=== PATIENT | male | born 1995 | race Caucasian/White ===

== ENCOUNTER 2017-01-01 02:34 | Inpatient (IN) | payer BC ==
[~2017-01-01] VITALS: Ht 172.7 cm; Wt 74.4 kg
[2017-01-01 02:35] VITALS: BP 125/77; PULSE 107; RESP 16; TEMP 98.7; O2SAT 98
[2017-01-01] MEDS ORDERED: ARIP1TAB7 PO (03:03)
[2017-01-01] MEDS ORDERED: DOXY1CAP74 PO (03:03)
[2017-01-01] MEDS ORDERED: PAXI30TA7 PO (03:03)
[2017-01-01] MEDS ORDERED: DULO20 PO (03:03)
[2017-01-01] MEDS ORDERED: propanalol (03:03)
--- NOTE | 2017-01-01 03:54 | PD ---
HPI Chief Complaint: Psychiatric Symptoms Time Seen by Provider: 03:17 Travel History International Travel<30 days: No Contact w/Intl Traveler<30days: No Traveled to known affect area: No History of Present Illness HPI 21-year-old white male presents to emergency department requesting psychological evaluation of depression with suicidal thoughts. The patient states that he has been recently depressed. He does not identify any particular reason why he is been more depressed lately. He states that he is attempted suicide in the past on more than one occasion. He has overdosed, and cut his wrists. He states that at night he lays down and contemplates killing himself. He is considered overdosing on his Vistaril then putting a plastic bag over his head. The patient denies any toxic ingestions. He denies any homicidal ideation. No recent illness. He states that he is compliant with his medications. Symptoms are severe. No alleviating factor. PFSH Past Medical History Narrative Medical Depression, suicide attempts Psychiatric: Yes (OCD, BORDERLINE PERSONALITY DYSORDER) Tetanus Vaccination: < 5 Years Past Surgical History Surgical History: No Previous Surgery Social History Alcohol Use: No Tobacco Use: Yes Substance Use: No Allergies-Medications (Allergen,Severity, Reaction): Coded Allergies: No Known Allergies (Unverified , 01/01/17) Reported Meds & Prescriptions Reported Meds & Active Scripts Active Reported [propanalol] Unknown Dose Doxycycline 40 Mg Cap 100 Mg PO DAILY Cymbalta DR (Duloxetine HCl) 20 Mg Capdr 20 Mg PO DAILY Abilify (Aripiprazole) 20 Mg Tab 20 Mg PO DAILY Paxil (Paroxetine HCl) 30 Mg Tab 60 Mg PO DAILY Review of Systems General / Constitutional: No: Fever Eyes: No: Visual changes HENT: No: Headaches Cardiovascular: No: Chest Pain or Discomfort Respiratory: No: Shortness of Breath Gastrointestinal: No: Abdominal Pain Genitourinary: No: Dysuria Musculoskeletal: No: Pain Skin: No Rash Neurologic: No: Weakness Psychiatric: Positive: Depression, Suicidal Ideations, Mood Disorder, No: Anxiety, Disorder of Thought, Substance Abuse, Homicidal Ideation Endocrine: No: Polydipsia Hematologic/Lymphatic: No: Easy Bruising Physical Exam Narrative GENERAL: Well-nourished, well-developed patient. Flat affect. SKIN: Warm and dry. Old scar in the left wrist suicide attempt. HEAD: Normocephalic and atraumatic. EYES: No scleral icterus. No injection or drainage. ENT: No nasal drainage noted. Mucous membranes pink. Airway patent. NECK: Supple, trachea midline. Moves head freely without obvious discomfort. CARDIOVASCULAR: Regular rate and rhythm without murmurs, gallops, or rubs. RESPIRATORY: Breath sounds equal bilaterally. No accessory muscle use. GASTROINTESTINAL: Abdomen soft, non-tender, nondistended. EXTREMITIES: No cyanosis or edema. BACK: Nontender without obvious deformity. No CVA tenderness. NEURO: Patient is alert and oriented. no sensorimotor deficits. Nonfocal. Normal speech. PSYCH: No delusions. No auditory or visual hallucinations. Data Data Last Documented VS Vital Signs Date Time Temp Pulse Resp B/P (MAP) Pulse Ox O2 Delivery O2 Flow Rate FiO2 01/01/17 02:35 98.7 107 16 125/77 (93) 98 Room Air Orders Orders Complete Blood Count With Diff (01/01/17 03:23) Comprehensive Metabolic Panel (01/01/17 03:23) Psych Screen (01/01/17 03:23) Drug Screen, Random Urine (01/01/17 03:23) Alcohol (Ethanol) (01/01/17 03:23) Salicylates (Aspirin) (01/01/17 03:23) Tylenol (Acetaminophen) (01/01/17 03:23) MDM Medical Decision Making Medical Screen Exam Complete: Yes Emergency Medical Condition: Yes Medical Record Reviewed: Yes Differential Diagnosis MDM: High Differential diagnoses: Schizophrenia, schizoaffective disorder, bipolar, anxiety, depression, adjustment reaction, mood disorder NOS, ODD, depressive disorder NOS, dementia, dementia with agitation, psychosis NOS, substance induced mood disorder, intermittent explosive disorder, Asperger syndrome, infection,electrolyte abnormality, malingering. Narrative Course Mental health screening discussed with the patient. Psychiatric screen ordered. The patient is been medically cleared. This is medical clearance for psychiatric admission, major depression, suicidal ideation Diagnosis Primary Impression: Medical clearance for psychiatric admission Additional Impressions: Major depression Qualified Codes: F33.2 - Major depressive disorder, recurrent severe without psychotic features Suicidal ideation Condition: Stable Seferino Nation Jan 01, 2017 03:54
[2017-01-01 04:15] LABS: AUTOMATED NEUTROPHIL # 4.8 TH/MM3 (1.8-7.7); BASOPHIL % 0.5 % (0.0-2.0); EOSINOPHIL # 0.2 TH/MM3 (0-0.4); EOSINOPHIL % 1.8 % (0.0-4.0); HEMATOCRIT 43.2 % (39.0-51.0); HEMO FLAGS DIFF FINAL; LYMPH % 33.1 % (9.0-44.0); LYMPHOCYTE # 2.9 TH/MM3 (1.0-4.8); MEAN CELL VOLUME 86.6 FL (80.0-100.0); MEAN CORPUSCULAR HGB CONC 33.5 % (32.0-36.0); MONO % 8.7 % (0.0-8.0); NEUT % 55.9 % (16.0-70.0); PLATELET COUNT 260 TH/MM3 (150-450); RED BLOOD COUNT 4.99 MIL/MM3 (4.50-5.90); RED CELL DISTRIBUTION WIDTH 14.4 % (11.6-17.2); WHITE BLOOD COUNT 8.6 TH/MM3 (4.0-11.0)
[2017-01-01 04:31] LABS: ALKALINE PHOSPHATASE 77 U/L (45-117); TOTAL BILIRUBIN ADULT 0.3 MG/DL (0.2-1.0)
[2017-01-01 04:37] LABS: ACETAMINOPHEN LESS THAN 2.0 MCG/ML (10.0-30.0); ALCOHOL LESS THAN 3 MG/DL (0-5); ALT (GPT) 24 U/L (12-78); ANION GAP 6 MEQ/L (5-15); AST (GOT) 19 U/L (15-37); BLOOD UREA NITROGEN 8 MG/DL (7-18); CHLORIDE 106 MEQ/L (98-107); GLOMERULAR FILTRATION RATE 145 ML/MIN (>89); SODIUM (NA) 139 MEQ/L (136-145)
[2017-01-01 08:02] VITALS: BP 108/58; PULSE 93; RESP 17; TEMP 97.9; O2SAT 97
--- NOTE | 2017-01-01 14:52 | HHI.HP ---
Provisional Diagnosis Admission Date Geff I. Major depression, severe, without psychotic features Certification of Person's Competence To Provide Express and Informed Consent I have personally examined Fernanda Corbett , a person being served at [facility] on, Jan 01, 2017 14:43. Express and informed consent means consent voluntarily given in writing, by a competent person, after sufficient explanation and disclosure of the subject matter involved to enable the person to make a knowing and willful decision without any element of force, fraud, deceit, duress, or other form of constraint or coercion. This person is 18 years of age or older, is not now known to be incompetent to consent to treatment with a guardian advocate, and does not have a health care surrogate or proxy currently making medical treatment decisions. I have found this person to be one of the following: [X] Competent to provide express and informed consent, as defined above, for voluntary admission to this facility and is competent to provide express and informed consent for treatment. He/she has the consistent capacity to make well reasoned, willful, and knowing decisions concerning his or her medical or mental health treatment. The person fully and consistently understands the purpose of the admission for examination/placement and is fully capable of personally exercising all rights assured [place] Incompetent to provide express and informed consent to voluntary admission, and this is incompetent to provide express and informed consent to treatment. The person must be transferred to involuntary status and a petition for a guardian advocate filed with the Circuit Court. [] Refusing to provide express and informed consent to voluntary admission but is competent to provide express and informed consent for treatment. The person must be discharged or transferred to involuntary status. Form shall be completed within 24 hours of a person's arrival at the receiving facility and filed in the clinical record of each person: 1. Admitted on a voluntary basis 2. Permitted to provide express and informed consent to his/her own treatment 3. Allowed to transfer from involuntary to voluntary status 4. Prior to permitting a person to consent to his or her own treatment after having been previously found incompetent to consent to treatment. History of Present Illness Capacity: Has Capacity HPI 21-year-old male who presents voluntarily with approximate two-month history of increasing symptoms of depression. Patient is treated by Oriana Vidales in the [facility], with multiple psychotropic medicines, but his depression has gotten worse. He is experiencing nightly thoughts of suicide, including overdose on his Vistaril medication and putting a plastic bag over his head. He has attempted suicide in the past by cutting his wrists and overdosing. He does not recognize any stressor in the last 1-2 months that has caused this exacerbation of depression. He does not use alcohol or drugs. Patient's current symptoms include depressed mood, anhedonia, feelings of hopelessness and helplessness, suicidal ideation with plan, sleep disturbance, social withdrawal, diminished energy, diminished concentration, poor self- esteem and anxiety. He is living with his parents and is unemployed. Review of Systems Psychiatric: COMPLAINS OF: Anxiety, Depression Except as stated in HPI: all other systems reviewed are Neg Past Psych History Psychological trauma history Denied Violence risk - others (6 mos) Minimal Violence risk - self (6 mos) High Substance Abuse History Drugs/Alcohol past 12 months Denied Past Family Social History Coded Allergies: No Known Allergies (Unverified , 01/01/17) Reported Medications [propanalol] No Conflict Check, for Anxiety 01/01/17 Doxycycline (Doxycycline) 40 Mg Cap, 100 MG PO DAILY for Infection, CAP 0 Refills 01/01/[address] (Cymbalta DR) 20 Mg Capdr, 20 MG PO DAILY, #30 CAP 0 Refills 01/01/17 Aripiprazole (Abilify) 20 Mg Tab, 20 MG PO DAILY, #30 TAB 0 Refills 01/01/17 Paroxetine (Paxil) 30 Mg Tab, 60 MG PO DAILY, #30 TAB 0 Refills 01/01/17 Family Psych History Positive for mood and anxiety disorders. Social History Lives with his 72-year-old father, 50 [id number] mother and twin sister. Apparently no one works in the home and the father is retired. Both the patient and his twin sister are not in school and not employed. Patient does not have a history of drug or alcohol abuse. He does have a history of treatment in both residential settings and partial hospitalization settings. He has been treated for years, since he was a minor. His current medication regimen is of concern to this physician due to possible side effects and it is not working to treat his depression. Physical Exam GENERAL: SKIN: Warm and dry. HEAD: Normocephalic. EYES: No scleral icterus. No injection or drainage. NECK: Supple, trachea midline. No JVD or lymphadenopathy. CARDIOVASCULAR: Regular rate and rhythm without murmurs, gallops, or rubs. RESPIRATORY: Breath sounds equal bilaterally. No accessory muscle use. GASTROINTESTINAL: Abdomen soft, non-tender, nondistended. MUSCULOSKELETAL: No cyanosis, or edema. BACK: Nontender without obvious deformity. No CVA tenderness. Vital Signs Vital Signs Date Time Temp Pulse Resp B/P (MAP) Pulse Ox O2 Delivery O2 Flow Rate FiO2 01/01/17 08:02 97.9 93 17 108/58 (75) 97 Room Air Lab Results Test 01/01/17 04:02 White Blood Count 8.6 TH/MM3 Red Blood Count 4.99 MIL/MM3 Hemoglobin 14.5 GM/DL Hematocrit 43.2 % Mean Corpuscular Volume 86.6 FL Mean Corpuscular Hemoglobin 29.0 PG Mean Corpuscular Hemoglobin Concent 33.5 % Red Cell Distribution Width 14.4 % Platelet Count 260 TH/MM3 Mean Platelet Volume 6.8 FL Neutrophils (%) (Auto) 55.9 % Lymphocytes (%) (Auto) 33.1 % Monocytes (%) (Auto) 8.7 % Eosinophils (%) (Auto) 1.8 % Basophils (%) (Auto) 0.5 % Neutrophils # (Auto) 4.8 TH/MM3 Lymphocytes # (Auto) 2.9 TH/MM3 Monocytes # (Auto) 0.8 TH/MM3 Eosinophils # (Auto) 0.2 TH/MM3 Basophils # (Auto) 0.0 TH/MM3 CBC Comment DIFF FINAL Differential Comment Blood Urea Nitrogen 8 MG/DL Creatinine 0.69 MG/DL Random Glucose 79 MG/DL Total Protein 6.8 GM/DL Albumin 3.6 GM/DL Calcium Level 8.5 MG/DL Alkaline Phosphatase 77 U/L Aspartate Amino Transf (AST/SGOT) 19 U/L Alanine Aminotransferase (ALT/SGPT) 24 U/L Total Bilirubin 0.3 MG/DL Sodium Level 139 MEQ/L Potassium Level 4.0 MEQ/L Chloride Level 106 MEQ/L Carbon Dioxide Level 27.0 MEQ/L Anion Gap 6 MEQ/L Estimat Glomerular Filtration Rate 145 ML/MIN Salicylates Level 2.7 MG/DL Urine Opiates Screen NEG Acetaminophen Level LESS THAN 2.0 MCG/ML Urine Barbiturates Screen NEG Urine Amphetamines Screen NEG Urine Benzodiazepines Screen NEG Urine Cocaine Screen NEG Urine Cannabinoids Screen NEG Ethyl Alcohol Level LESS THAN 3 MG/DL Mental Status Examination Appearance: Appropriate Consciousness: Alert Orientation: x4 Motor Activity: Normal gait Speech: Unremarkable Language: Adequate Fund of Knowledge: Adequate Attention and Concentration: Adequate Memory: Unremarkable Mood: Sad Affect: Sad Thought Process & Associations: Intact Thought Content: Appropriate Hallucination Type: None Delusion Type: None Suicidal Ideation: Yes Suicidal Plan: Yes Suicidal Intention: Yes Homicidal Ideation: No Homicidal Plan: No Homicidal Intention: No Insight: Fair Judgment: Impulsive Assessment & Plan Problem List: (1) Severe major depression without psychotic features ICD Codes: F32.2 - Major depressive disorder, single episode, severe without psychotic features Status: Acute Assessment & Plan Estimated LOS: days. 21-year-old male presents voluntarily with increasing symptoms of depression over the last 2 months, with nightly thoughts of killing himself, including by overdose and suffocation with a plastic bag over his head. Patient is unable to contract for safety at this time and states he is tired of contemplating suicide every night and resisting his impulses. He does not feel his medications are working adequately and he is unable to contract for safety. He has attempted suicide in the past by overdose and cutting his wrists. This physician feels he is at great risk for another suicide attempt. This physician has ordered a CBC and comprehensive metabolic panel to determine if any infectious process or metabolic process is causing or contributing to his depression. Additionally, this physician has ordered a thyroid-stimulating hormone level, vitamin B-12 and vitamin D levels, to determine if deficiencies in these areas are causing or contributing to his depression. This physician has also ordered an EKG, to determine his cardiac conduction status. Patient is on multiple psychotropic medications, some of which inhibit the metabolism of others. This may be putting the patient at risk for cardiac conduction abnormalities. Finally, this physician spoke with the patient's nurse regarding his recent behavior. Case management will be involved to obtain further history from family members and assist with disposition planning. Tano Patel MD Jan 01, 2017 14:52
[2017-01-01] MEDS ORDERED: ACETAMINOPHEN 325 MG TAB PO PRN (15:00)
[2017-01-01] MEDS ORDERED: LORazepam 1 MG TAB PO PRN (15:00)
[2017-01-01] MEDS ORDERED: ALUMINUM/MAGNESIUM/SIMETH 30 ML CUP PO PRN (15:00)
[2017-01-01] MEDS ORDERED: LORazepam 2 MG/ML VIAL IM PRN (15:00)
[2017-01-01] MEDS ORDERED: DOXY100C PO (15:27)
[2017-01-01] MEDS ORDERED: PILL SPLITTER OTHER PRN (15:30)
[2017-01-01 18:12] VITALS: BP 118/56; PULSE 83; RESP 18; TEMP 98.9; O2SAT 97
[2017-01-01] MEDS: PARoxetine HCL 20 MG TAB PO SCH (18:31)
[2017-01-01] MEDS: DULoxetine HCl DR 20 MG CAP PO SCH (18:31)
[2017-01-01] MEDS: hydrOXYzine HCL 50 MG TAB PO PRN (20:43)
[2017-01-02 05:56] VITALS: BP 101/58; PULSE 77; RESP 17; TEMP 97.4; O2SAT 98
[2017-01-02] MEDS: DULoxetine HCl DR 20 MG CAP PO SCH (08:11)
[2017-01-02] MEDS: PARoxetine HCL 20 MG TAB PO SCH (08:12)
[2017-01-02] MEDS: DOXYCYCLINE HYCLATE 100 MG TAB PO SCH (08:35)
[2017-01-02] MEDS ORDERED: INFLUENZA VIRUS VACCINE (QUADRIVALENT) 0.5 ML SYR IM ONE (10:00)
[2017-01-02 11:33] LABS: AUTOMATED NEUTROPHIL # 4.4 TH/MM3 (1.8-7.7); BASOPHIL % 0.5 % (0.0-2.0); EOSINOPHIL # 0.2 TH/MM3 (0-0.4); EOSINOPHIL % 2.2 % (0.0-4.0); HEMATOCRIT 44.2 % (39.0-51.0); HEMO FLAGS DIFF FINAL; LYMPH % 29.7 % (9.0-44.0); LYMPHOCYTE # 2.2 TH/MM3 (1.0-4.8); MEAN CELL VOLUME 86.7 FL (80.0-100.0); MEAN CORPUSCULAR HEMOGLOBIN 28.4 PG (27.0-34.0); MEAN CORPUSCULAR HGB CONC 32.8 % (32.0-36.0); NEUT % 59.6 % (16.0-70.0); PLATELET COUNT 246 TH/MM3 (150-450); RED CELL DISTRIBUTION WIDTH 14.3 % (11.6-17.2); WHITE BLOOD COUNT 7.4 TH/MM3 (4.0-11.0)
[2017-01-02 11:51] LABS: ALT (GPT) 22 U/L (12-78); ANION GAP 6 MEQ/L (5-15); AST (GOT) 15 U/L (15-37); BICARBONATE 28.2 MEQ/L (21.0-32.0); BLOOD UREA NITROGEN 9 MG/DL (7-18); CHLORIDE 105 MEQ/L (98-107); GLOMERULAR FILTRATION RATE 170 ML/MIN (>89); POTASSIUM 4.2 MEQ/L (3.5-5.1); SODIUM (NA) 139 MEQ/L (136-145)
[2017-01-02] MEDS ORDERED: PROP10TA6 PO (12:04)
[2017-01-02 12:18] LABS: ALKALINE PHOSPHATASE 69 U/L (45-117); HDL CHOLESTEROL 26.9 MG/DL (40.0-60.0); LDL CHOLESTEROL 95 MG/DL (0-99); TOTAL BILIRUBIN ADULT 0.3 MG/DL (0.2-1.0)
--- NOTE | 2017-01-02 12:18 | HHI.PYPN ---
Subjective Remarks Patient seen and examined. Chart reviewed. Case discussed in treatment team. On my examination today, the patient reports suicidal ideation since age 11. He notes that these ideations improve with medications but never remit. He says that prior to admission "I felt like either I was going to kill myself or come in [to the hospital]." He says that he was planning to overdose on medications and asphyxiate himself and had gotten as far as selecting the appropriate medications and assembling the bag but stopped himself and sought psychiatric help instead. He denies any urge to hurt himself on the inpatient unit but admits to ongoing suicidal ideation. He contracts for safety and agrees to let nursing staff know if he is feeling like hurting himself on the unit. He endorses low mood among other depressive symptoms. Most troubling symptom cluster is low energy and lack of motivation. Patient also reports obsessional thinking with perceived sexual transgressions. No current or prior hypomanic or manic symptoms although the patient's mother does have a history of bipolar illness. No psychotic symptoms. Patient does have some social phobia and feels that others are judging him. Patient reports that he has been on his current regimen of Abilify, Paxil and Cymbalta for the last month, when the Cymbalta was added during his most recent hospitalization. He is tolerating this regimen well but does not feel like the addition of Cymbalta was terribly helpful. He says Prozac and Luvox cause migraines in the past. He has been on Wellbutrin but never in combination with current agents. He has also been on Zoloft, clomipramine, Risperdal and Latuda. Patient is transgender and receives testosterone injections every week on , and I have asked him to have his home testosterone preparation brought in so that it may be ordered for him. Denies side effects from medications. No physical complaints. Chief Complaint: suicidal ideation Review of Systems Except as stated in HPI: all other systems reviewed are Neg Mental Status Examination Appearance: Appropriate Consciousness: Alert Orientation: x4 Motor Activity: Other (no motor abnormalities noted) Speech: Unremarkable Language: Adequate Fund of Knowledge: Adequate Attention and Concentration: Adequate Memory: Unremarkable (grossly intact on clinical exam) Mood: Other (depressed) Affect: Blunt Thought Process & Associations: Logical, Linear Thought Content: Appropriate Hallucination Type: None Delusion Type: None Suicidal Ideation: Yes Suicidal Plan: No Suicidal Intention: No Homicidal Ideation: No Homicidal Plan: No Homicidal Intention: No Insight: Fair Judgment: Impulsive Results Labs Test 01/02/17 10:52 White Blood Count 7.4 TH/MM3 Red Blood Count 5.10 MIL/MM3 Hemoglobin 14.5 GM/DL Hematocrit 44.2 % Mean Corpuscular Volume 86.7 FL Mean Corpuscular Hemoglobin 28.4 PG Mean Corpuscular Hemoglobin Concent 32.8 % Red Cell Distribution Width 14.3 % Platelet Count 246 TH/MM3 Mean Platelet Volume 6.9 FL Neutrophils (%) (Auto) 59.6 % Lymphocytes (%) (Auto) 29.7 % Monocytes (%) (Auto) 8.0 % Eosinophils (%) (Auto) 2.2 % Basophils (%) (Auto) 0.5 % Neutrophils # (Auto) 4.4 TH/MM3 Lymphocytes # (Auto) 2.2 TH/MM3 Monocytes # (Auto) 0.6 TH/MM3 Eosinophils # (Auto) 0.2 TH/MM3 Basophils # (Auto) 0.0 TH/MM3 CBC Comment DIFF FINAL Differential Comment Blood Urea Nitrogen 9 MG/DL Creatinine 0.60 MG/DL Random Glucose 85 MG/DL Albumin 3.5 GM/DL Calcium Level 8.8 MG/DL Aspartate Amino Transf (AST/SGOT) 15 U/L Alanine Aminotransferase (ALT/SGPT) 22 U/L Sodium Level 139 MEQ/L Potassium Level 4.2 MEQ/L Chloride Level 105 MEQ/L Carbon Dioxide Level 28.2 MEQ/L Anion Gap 6 MEQ/L Estimat Glomerular Filtration Rate 170 ML/MIN Cholesterol Level 165 MG/DL Labs reviewed. CBC unremarkable. CMP unremarkable. Vitamin D level low. TSH within normal limits. Urine toxicology negative and alcohol level undetectable. Vitals/IOs Vital Signs Date Time Temp Pulse Resp B/P (MAP) Pulse Ox O2 Delivery O2 Flow Rate FiO2 01/02/17 05:56 97.4 77 17 101/58 (72) 98 01/01/17 08:02 Room Air Assessment & Plan Problem List: (1) Major depression ICD Codes: F32.9 - Major depressive disorder, single episode, unspecified Status: Acute Assessment & Plan Extensive discussion with patient regarding pharmacotherapeutic options for current psychiatric symptoms. We discussed the risks and benefits of several approaches including but not limited to adjustment of primary antidepressant, augmentation with Wellbutrin, Cytomel, lithium, Lamictal among other strategies. Since the Cymbalta has not been terribly helpful for him, and since he is already on a robust dose of a serotonergic antidepressant in the Paxil, discontinue Cymbalta. Patient would like to try Wellbutrin in combination with current Abilify/Paxil regimen. Initiate Wellbutrin SR 100 mg twice daily with plans to titrate to effect. Nurse to clarify home testosterone formulation and dose, and I will then order this. Vitamin D supplement. Patient is requesting a vegetarian diet, and I have ordered this. Continue to monitor on the inpatient unit. Encourage participation in groups and unit activities. Continue other medications and care as ordered. Justification for Cont. Inpt. Monitoring for impairments in safety. Medication changes. High risk for decompensation in less restrictive environment. Discharge Planning Pending psychiatric stabilization. ELOS: 7-10 inpatient days. Case discussed with counselor. Possible return to residential treatment as a bridge between inpatient unit and outpatient psychiatric care. Request HC Surrog/Guard Advoc?: No Problem Qualifiers (1) Major depression: Qualified Codes: F33.2 - Major depressive disorder, recurrent severe without psychotic features Jagdeep Montoya MD Jan 02, 2017 12:17
[2017-01-02] MEDS: buPROPion HCL 100 MG SUSTAINED RELEASE TAB PO SCH (14:22)
[2017-01-02] MEDS: ERGOCALCIFEROL (VIT D2) 50,000 UNIT CAP PO SCH (15:02)
[2017-01-02 15:21] LABS: HEMOGLOBIN A1a 1.1 %; HEMOGLOBIN A1b 1.6 %; HEMOGLOBIN Ao 86.9 %; HEMOGLOBIN LA1C 1.7 %; HEMOGLOBIN P3 3.2 %
[2017-01-02 18:13] VITALS: BP 106/58; PULSE 91; RESP 17; TEMP 98; O2SAT 98
[2017-01-03 06:13] VITALS: BP 89/58; PULSE 78; RESP 18; TEMP 97.5; O2SAT 98
--- NOTE | 2017-01-03 07:43 | EKG ---
Date Performed: 01/01/2017 Time Performed: 16:05:33 PTAGE: 21 years EKG: Sinus rhythm NORMAL ECG NO PREVIOUS TRACING DOCTOR: Tano Brewster Interpretating Date/Time 01/03/2017 07:41:50
[2017-01-03] MEDS: PARoxetine HCL 20 MG TAB PO SCH (08:08)
[2017-01-03] MEDS: DOXYCYCLINE HYCLATE 100 MG TAB PO SCH (08:11)
[2017-01-03] MEDS: buPROPion HCL 100 MG SUSTAINED RELEASE TAB PO SCH ×2 (08:15→13:42)
--- NOTE | 2017-01-03 09:48 | HHI.PYPN ---
Subjective Remarks Patient seen and examined with nurse. Chart reviewed. Case discussed with nursing staff. On my examination today, the patient complains of ongoing low mood. He endorses ongoing suicidal ideation worse than chronic baseline suicidal ideation. He says that his urge to self injure is 4/10, and the lowest it has ever gotten in the past is 2-3/10. Sleep is fair. Obsessional thinking somewhat decreased. Denies any side effects from medications. No physical complaints. Reports that he recently had started seeing an individual DBT therapist by the name of Hugo Tayler in [place]. Interested in trying to resume residential treatment. We have confirmed testosterone dose, and I have ordered this. Chief Complaint: suicidal ideation Review of Systems Except as stated in HPI: all other systems reviewed are Neg Mental Status Examination Appearance: Appropriate Consciousness: Alert Orientation: x4 Motor Activity: Other (no motor abnormalities noted) Speech: Unremarkable Attention and Concentration: Adequate Mood: Other (depressed perhaps a little less so today) Affect: Other (a little more full and reactive) Thought Process & Associations: Logical, Linear Thought Content: Appropriate Hallucination Type: None Delusion Type: None Suicidal Ideation: Yes Suicidal Plan: No Suicidal Intention: No Homicidal Ideation: No Homicidal Plan: No Homicidal Intention: No Insight: Fair Judgment: Impulsive Results Labs Test 01/02/17 10:52 White Blood Count 7.4 TH/MM3 Red Blood Count 5.10 MIL/MM3 Hemoglobin 14.5 GM/DL Hematocrit 44.2 % Mean Corpuscular Volume 86.7 FL Mean Corpuscular Hemoglobin 28.4 PG Mean Corpuscular Hemoglobin Concent 32.8 % Red Cell Distribution Width 14.3 % Platelet Count 246 TH/MM3 Mean Platelet Volume 6.9 FL Neutrophils (%) (Auto) 59.6 % Lymphocytes (%) (Auto) 29.7 % Monocytes (%) (Auto) 8.0 % Eosinophils (%) (Auto) 2.2 % Basophils (%) (Auto) 0.5 % Neutrophils # (Auto) 4.4 TH/MM3 Lymphocytes # (Auto) 2.2 TH/MM3 Monocytes # (Auto) 0.6 TH/MM3 Eosinophils # (Auto) 0.2 TH/MM3 Basophils # (Auto) 0.0 TH/MM3 CBC Comment DIFF FINAL Differential Comment Blood Urea Nitrogen 9 MG/DL Creatinine 0.60 MG/DL Random Glucose 85 MG/DL Total Protein 6.3 GM/DL Albumin 3.5 GM/DL Calcium Level 8.8 MG/DL Alkaline Phosphatase 69 U/L Aspartate Amino Transf (AST/SGOT) 15 U/L Alanine Aminotransferase (ALT/SGPT) 22 U/L Total Bilirubin 0.3 MG/DL Sodium Level 139 MEQ/L Potassium Level 4.2 MEQ/L Chloride Level 105 MEQ/L Carbon Dioxide Level 28.2 MEQ/L Anion Gap 6 MEQ/L Estimat Glomerular Filtration Rate 170 ML/MIN Hemoglobin A1c 5.0 % Triglycerides Level 215 MG/DL Cholesterol Level 165 MG/DL LDL Cholesterol 95 MG/DL HDL Cholesterol 26.9 MG/DL Cholesterol/HDL Ratio 6.13 RATIO Vitamin B12 Level 490 PG/ML 25-Hydroxy Vitamin D Total 11.9 ng/ML Thyroid Stimulating Hormone 3rd Gen 1.130 uIU/ML Labs reviewed. EKG normal sinus rhythm with a QTC within normal limits. Vitals/IOs Vital Signs Date Time Temp Pulse Resp B/P (MAP) Pulse Ox O2 Delivery O2 Flow Rate FiO2 01/03/17 06:13 97.5 78 18 89/58 (68) 98 01/01/17 08:02 Room Air Assessment & Plan Problem List: (1) Major depression ICD Codes: F32.9 - Major depressive disorder, single episode, unspecified Status: Acute Assessment & Plan Continue Wellbutrin as ordered for now with plans to titrate to target ongoing low mood. Continue Abilify and Paxil as ordered. I have ordered patient's testosterone injection for tomorrow. Continue to monitor on the inpatient unit. Continue other medications and care as ordered. Justification for Cont. Inpt. Monitoring for impairments in safety. Medication changes planned. High risk for decompensation in less restrictive environment. Discharge Planning Possible residential treatment. I have left a voicemail for the counselor to discuss options with the patient in this regard. If residential treatment can be arranged, anticipate discharge Sunday or perhaps shortly after the weekend. Request HC Surrog/Guard Advoc?: No Problem Qualifiers (1) Major depression: Qualified Codes: F33.2 - Major depressive disorder, recurrent severe without psychotic features Jagdeep Montoya MD Jan 03, 2017 09:48
[2017-01-03 17:43] VITALS: BP 126/77; PULSE 89; RESP 18; TEMP 98.9; O2SAT 100
[2017-01-04 06:16] VITALS: BP 98/55; PULSE 82; RESP 16; TEMP 97.8; O2SAT 97
[2017-01-04] MEDS: DOXYCYCLINE HYCLATE 100 MG TAB PO SCH (08:17)
[2017-01-04] MEDS: PARoxetine HCL 20 MG TAB PO SCH (08:17)
[2017-01-04] MEDS: buPROPion HCL 100 MG SUSTAINED RELEASE TAB PO SCH (08:28)
--- NOTE | 2017-01-04 10:58 | HHI.PYPN ---
Subjective Chief Complaint: suicidal ideation Remarks Patient seen and examined. Chart reviewed. Case discussed with nursing staff. On my examination today, the patient continues to complain of low mood. Says that he was ruminating on how he feels like his life is "pointless, meaningless and empty." We discuss ways in which he has found meaning and purpose in the past, and the patient says that he has found a lot of meaning through schooling and education. He also paints and draws, but he says that he does not enjoy the process of creating these artworks but rather enjoys the finished product, and he notes that lately he has not even been enjoying this. He denies any active suicidal ideation at this time. A little irritable last night because his mother called and seemed somewhat distant or distracted but would not tell him what was wrong. I ask if he would like us to involve his mother or anyone else in his case, and he declines at this time. He says that he was on some Inderal prior to admission for the physical symptoms of anxiety and asks if he should resume this after discharge, and I cautioned him that because his blood pressures have been on the low side while he has been in the hospital, I think it would be inadvisable to restart an antihypertensive agent, such as Inderal. Denies side effects from current medications. Agreeable to titration of Wellbutrin to target low mood. Agreeable to residential treatment but would like to explore intensive outpatient treatment on an individual basis with psychotherapist as an alternative or backup plan. Review of Systems Except as stated in HPI: all other systems reviewed are Neg Mental Status Examination Appearance: Appropriate Consciousness: Alert Orientation: x4 Motor Activity: Other (no motoric abnormalities noted) Speech: Unremarkable Language: Adequate Attention and Concentration: Adequate Mood: Other (Depressed) Affect: Blunt Thought Process & Associations: Logical, Goal directed, Linear Thought Content: Appropriate Hallucination Type: None Delusion Type: None Suicidal Ideation: No Suicidal Plan: No Suicidal Intention: No Homicidal Ideation: No Homicidal Plan: No Homicidal Intention: No Insight: Fair Judgment: Impulsive Results Labs Labs reviewed. No new labs. Vitals/IOs Vital Signs Date Time Temp Pulse Resp B/P (MAP) Pulse Ox O2 Delivery O2 Flow Rate FiO2 01/04/17 06:16 97.8 82 16 98/55 (69) 97 01/01/17 08:02 Room Air Assessment & Plan Problem List: (1) Major depression ICD Codes: F32.9 - Major depressive disorder, single episode, unspecified Status: Acute Assessment & Plan Titrate Wellbutrin SR to 150 mg twice daily to target ongoing low mood symptoms. Continue Abilify and Paxil as ordered. Continue to monitor on the inpatient unit. Continue other medications and care as ordered. Justification for Cont. Inpt. Medication changes. Monitoring for impairment and safety. High risk for decompensation in less restrictive environment. Discharge Planning Residential treatment versus intensive outpatient psychotherapy. Case discussed with counselor who is working on residential treatment options. Request HC Surrog/Guard Advoc?: No Problem Qualifiers (1) Major depression: Qualified Codes: F33.2 - Major depressive disorder, recurrent severe without psychotic features Jagdeep Montoya MD Jan 04, 2017 10:58
[2017-01-04] MEDS: TESTOSTERONE CYPIONATE IN OIL 200 MG/ML VIAL IM SCH (12:02)
[2017-01-04] MEDS: buPROPion HCL 150 MG SUSTAINED RELEASE TAB PO SCH (14:51)
[2017-01-04 16:13] VITALS: BP 127/80; PULSE 88; RESP 18; TEMP 97; O2SAT 99
[2017-01-04] MEDS: hydrOXYzine HCL 50 MG TAB PO PRN (20:07)
[2017-01-04] MEDS: traZODone HCL 50 MG TAB PO PRN (21:29)
[2017-01-05 06:10] VITALS: BP 99/69; PULSE 76; RESP 16; TEMP 97.9; O2SAT 96
[2017-01-05] MEDS: DOXYCYCLINE HYCLATE 100 MG TAB PO SCH (09:24)
[2017-01-05] MEDS: PARoxetine HCL 20 MG TAB PO SCH (09:25)
[2017-01-05] MEDS: buPROPion HCL 150 MG SUSTAINED RELEASE TAB PO SCH ×2 (09:25→14:35)
--- NOTE | 2017-01-05 11:45 | HHI.PYPN ---
Subjective Chief Complaint: suicidal ideation Remarks Patient seen and examined with nurse. Chart reviewed. Case discussed with nursing staff reports the patient had a difficult visit yesterday evening and return to the unit thereafter crying but otherwise has been no behavioral problem. On my examination today, the patient reports that his mood this morning is "pretty down." He says that his mother brought up his separation from his spouse and this led to him ruminating about being alone. This morning , after a conversation with a peer, he has been ruminating about and the afterlife. He says that his suicidal intent is 5/10 today, although he continues to deny any urge to hurt himself on the inpatient unit. He does feel somewhat less lethargic, and we have discussed that this represents a period of risk for potential self-harm and it is crucial for him to report any active suicidal intent to the nurse immediately, and he agrees to do so. Denies side effects from medications. Remains agreeable to residential treatment, if this can be arranged. No physical complaints. Review of Systems Except as stated in HPI: all other systems reviewed are Neg Mental Status Examination Appearance: Appropriate Consciousness: Alert Orientation: x4 Motor Activity: Other (no motoric abnormalities noted) Speech: Unremarkable Language: Adequate Attention and Concentration: Adequate Mood: Other ("pretty down") Affect: Other (consistent with stated mood) Thought Process & Associations: Logical, Goal directed, Linear Thought Content: Appropriate Hallucination Type: None Delusion Type: None Suicidal Ideation: Yes Suicidal Plan: No Suicidal Intention: Yes (no reported urge to hurt himself on the inpatient unit ) Homicidal Ideation: No Homicidal Plan: No Homicidal Intention: No Insight: Adequate Judgment: Adequate Results Labs labs reviewed Vitals/IOs Vital Signs Date Time Temp Pulse Resp B/P (MAP) Pulse Ox O2 Delivery O2 Flow Rate FiO2 01/05/17 06:10 97.9 76 16 99/69 (79) 96 01/01/17 08:02 Room Air Assessment & Plan Problem List: (1) Major depression ICD Codes: F32.9 - Major depressive disorder, single episode, unspecified Status: Acute Assessment & Plan Continue Wellbutrin as ordered. Continue Paxil and Abilify as ordered. Continue to monitor on the inpatient unit. Continue other medications of care as ordered. Justification for Cont. Inpt. Monitoring for impairments in safety, none noted. Discharge Planning Case discussed with counselor. Patient has been declined by a local residential treatment facility and another does not take his insurance. I have instructed the counselor to expand her search for potential residential treatment facilities throughout the state. Request HC Surrog/Guard Advoc?: No Problem Qualifiers (1) Major depression: Qualified Codes: F33.2 - Major depressive disorder, recurrent severe without psychotic features Jagdeep Montoya MD Jan 05, 2017 11:45
[2017-01-05] MEDS: hydrOXYzine HCL 50 MG TAB PO PRN (14:41)
[2017-01-05 17:30] VITALS: BP 141/68; PULSE 90; RESP 16; TEMP 98.8; O2SAT 99
[2017-01-05] MEDS: traZODone HCL 50 MG TAB PO PRN (22:16)
[2017-01-06 06:00] VITALS: BP 117/57; PULSE 78; RESP 15; TEMP 97.9; O2SAT 99
[2017-01-06] MEDS: DOXYCYCLINE HYCLATE 100 MG TAB PO SCH (08:22)
[2017-01-06] MEDS: buPROPion HCL 150 MG SUSTAINED RELEASE TAB PO SCH ×2 (08:22→13:53)
[2017-01-06] MEDS: PARoxetine HCL 20 MG TAB PO SCH (08:22)
[2017-01-06] MEDS: MAGNESIUM HYDROXIDE SUSP 30 ML CUP PO PRN (09:19)
--- NOTE | 2017-01-06 15:35 | HHI.PYPN ---
Subjective Chief Complaint: suicidal ideation Remarks Pt seen and discussed with staff. Pt has been compliant with medication and denies side effects. Pt reports continued thoughts of hurting self but denies plan. Pt has been isolating in room, but has attended some groups. Pt reports that depressive symptoms have been especially bad today and he had several bad dreams about his ex partner. Mental Status Examination Appearance: Appropriate Consciousness: Alert Orientation: x4 Motor Activity: Other (no motoric abnormalities noted) Speech: Unremarkable Language: Adequate Attention and Concentration: Adequate Mood: Sad Affect: Sad Thought Process & Associations: Logical, Goal directed, Linear Thought Content: Appropriate Hallucination Type: None Delusion Type: None Suicidal Ideation: Yes Suicidal Plan: No Suicidal Intention: No Homicidal Ideation: No Homicidal Plan: No Homicidal Intention: No Insight: Adequate Judgment: Adequate Results Vitals/IOs Vital Signs Date Time Temp Pulse Resp B/P (MAP) Pulse Ox O2 Delivery O2 Flow Rate FiO2 01/06/17 06:00 97.9 78 15 117/57 (77) 99 Assessment & Plan Problem List: (1) Major depression ICD Codes: F32.9 - Major depressive disorder, single episode, unspecified Status: Acute Assessment & Plan Continue current tx plan. Estimated LOS: days Justification for Cont. Inpt. impairments in safety Request HC Surrog/Guard Advoc?: No Problem Qualifiers (1) Major depression: Qualified Codes: F33.2 - Major depressive disorder, recurrent severe without psychotic features Ivette Torres MD Jan 06, 2017 15:35
[2017-01-06 18:07] VITALS: BP 134/67; PULSE 78; RESP 16; TEMP 98; O2SAT 98
[2017-01-06] MEDS: traZODone HCL 50 MG TAB PO PRN (22:06)
[2017-01-06] MEDS: hydrOXYzine HCL 50 MG TAB PO PRN (22:06)
[2017-01-07 06:11] VITALS: BP 119/61; PULSE 80; RESP 16; TEMP 97.7; O2SAT 98
[2017-01-07] MEDS: PARoxetine HCL 20 MG TAB PO SCH (08:19)
[2017-01-07] MEDS: buPROPion HCL 150 MG SUSTAINED RELEASE TAB PO SCH ×2 (08:19→13:52)
[2017-01-07] MEDS: DOXYCYCLINE HYCLATE 100 MG TAB PO SCH (08:19)
[2017-01-07 16:31] VITALS: BP 120/63; PULSE 79; RESP 18; TEMP 97.8; O2SAT 98
--- NOTE | 2017-01-07 16:36 | HHI.PYPN ---
Subjective Chief Complaint: suicidal ideation Remarks Pt seen and discussed with staff. He states that he continues with suicidal thoughts and was ruminating on slitting his wrists. He is compliant with medications and attending groups. Mental Status Examination Appearance: Appropriate Consciousness: Alert Orientation: x4 Motor Activity: Other (no motoric abnormalities noted) Speech: Unremarkable Language: Adequate Attention and Concentration: Adequate Mood: Sad Affect: Sad Thought Process & Associations: Logical, Goal directed, Linear Thought Content: Appropriate Hallucination Type: None Delusion Type: None Suicidal Ideation: Yes Suicidal Plan: Yes (denies active intent but reports ruminations on slitting wrists) Suicidal Intention: No Homicidal Ideation: No Homicidal Plan: No Homicidal Intention: No Insight: Adequate Judgment: Adequate Results Vitals/IOs Vital Signs Date Time Temp Pulse Resp B/P (MAP) Pulse Ox O2 Delivery O2 Flow Rate FiO2 01/07/17 16:31 97.8 79 18 120/63 (82) 98 Assessment & Plan Problem List: (1) Major depression ICD Codes: F32.9 - Major depressive disorder, single episode, unspecified Status: Acute Assessment & Plan Continue current tx plan. Estimated LOS: days Justification for Cont. Inpt. impairments in safety Request HC Surrog/Guard Advoc?: No Problem Qualifiers (1) Major depression: Qualified Codes: F33.2 - Major depressive disorder, recurrent severe without psychotic features Ivette Torres MD Jan 07, 2017 16:36
[2017-01-07] MEDS: MAGNESIUM HYDROXIDE SUSP 30 ML CUP PO PRN (17:18)
[2017-01-07] MEDS: traZODone HCL 50 MG TAB PO PRN (21:05)
[2017-01-07] MEDS: hydrOXYzine HCL 50 MG TAB PO PRN (21:32)
[2017-01-08 05:59] VITALS: BP 144/88; PULSE 96; RESP 17; TEMP 97.9; O2SAT 98
[2017-01-08] MEDS: DOXYCYCLINE HYCLATE 100 MG TAB PO SCH (08:35)
[2017-01-08] MEDS: PARoxetine HCL 20 MG TAB PO SCH (08:36)
[2017-01-08] MEDS: buPROPion HCL 150 MG SUSTAINED RELEASE TAB PO SCH ×2 (08:39→13:56)
--- NOTE | 2017-01-08 10:50 | HHI.PYPN ---
Subjective Chief Complaint: suicidal ideation Remarks Patient seen and examined with nurse. Chart reviewed. Case discussed with nursing staff. On my examination today, the patient reports that he continues to struggle with low mood, particularly at night. He says that he has a lot of initial insomnia with racing thoughts, "like 3 radios playing different things. " In context, this does not sound psychotic or manic in nature, but more joyce to depressive rumination. Reports worsening SI and ranks suicidal intent as 6/ 10. He continues to deny any urge to hurt himself on the unit and contracts for safety on the unit. He does note that if he were at home he would "definitely" be at risk for self-harm. We review previous med trials. He notes that he has been on Zyprexa in the past and is not sure why he ever went off of it. He felt it helped more with his sleep than Abilify he is currently on. Denies side effects from medications. No physical complaints. Review of Systems Except as stated in HPI: all other systems reviewed are Neg Mental Status Examination Appearance: Appropriate Consciousness: Alert Orientation: x4 Motor Activity: Other (no hand tremor, no dystonia, no dyskinesia noted.) Speech: Unremarkable Language: Adequate Fund of Knowledge: Adequate Attention and Concentration: Adequate Memory: Unremarkable Mood: Other (depressed) Affect: Blunt Thought Process & Associations: Logical, Goal directed, Linear Thought Content: Appropriate Hallucination Type: None Delusion Type: None Suicidal Ideation: Yes Suicidal Plan: No Suicidal Intention: Yes (08/26.) Homicidal Ideation: No Homicidal Plan: No Homicidal Intention: No Insight: Adequate Judgment: Adequate Results Labs Labs reviewed. Vitals/IOs Vital Signs Date Time Temp Pulse Resp B/P (MAP) Pulse Ox O2 Delivery O2 Flow Rate FiO2 01/08/17 05:59 97.9 96 17 144/88 (106) 98 Assessment & Plan Problem List: (1) Major depression ICD Codes: F32.9 - Major depressive disorder, single episode, unspecified Status: Acute Assessment & Plan Suspect poor sleep coupled with depressive rumination during this nighttime period of wakefulness is to blame for worsening mood. I do think he would benefit from a more sedating antipsychotic. After a discussion of options in this regard, we settle on a return to Zyprexa. Cross taper Abilify to Zyprexa. Abilify 10mg/day and Zyprexa 5mg qHS. Continue other psychotropics as ordered. Continue to monitor on the general psychiatric unit. Low threshold to transfer to high acuity unit and/or a place with a one-to-one if there is any evidence of behavioral deterioration or active suicidality. Continue other medications and care as ordered. Justification for Cont. Inpt. Impairment in safety. Med changes. High risk for decompensation in less restrictive environment. Discharge Planning Pending psychiatric stabilization. Case discussed with counselor who continues to try to identify a residential treatment program for the patient. Also exploring alternative options such as IOP, although we would likely need to see significant improvement in mood to make home with IOP a safe plan. Request HC Surrog/Guard Advoc?: No Problem Qualifiers (1) Major depression: Qualified Codes: F33.2 - Major depressive disorder, recurrent severe without psychotic features Jagdeep Montoya MD Jan 08, 2017 10:50
[2017-01-08 15:29] VITALS: BP 121/77; PULSE 99; RESP 18; TEMP 98.6; O2SAT 98
[2017-01-08] MEDS: hydrOXYzine HCL 50 MG TAB PO PRN (17:49)
[2017-01-08] MEDS ORDERED: OLANZapine 5 MG TAB PO SCH (21:00)
[2017-01-08] MEDS: traZODone HCL 50 MG TAB PO PRN (21:09)
[2017-01-09 05:32] VITALS: BP 112/58; PULSE 78; RESP 17; TEMP 97.6; O2SAT 95
[2017-01-09] MEDS: PARoxetine HCL 20 MG TAB PO SCH (07:58)
[2017-01-09] MEDS: ARIPiprazole 10 MG TAB PO SCH (07:59)
[2017-01-09] MEDS: DOXYCYCLINE HYCLATE 100 MG TAB PO SCH (07:59)
[2017-01-09] MEDS: buPROPion HCL 150 MG SUSTAINED RELEASE TAB PO SCH ×2 (08:00→14:17)
--- NOTE | 2017-01-09 11:09 | HHI.PYPN ---
Subjective Chief Complaint: suicidal ideation Remarks Patient seen and examined with nurse. Chart reviewed. Case discussed in treatment team. Per counselor, identifying residential treatment facility has proven quite difficult. Counselor to visit with patient today to try to calm up with a safe discharge plan. On my exam, patient reports mood remains depressed. He was able to visit with his mother and father yesterday and also participated in some groups and unit activities by his report. Suicidal ideation and suicidal intent unchanged. No reported urge to hurt himself on the inpatient psychiatric unit. He did sleep much better with the Zyprexa last night and denies side effects from medications. Does report some pelvic cramping and bleeding. Reports that he had been speaking with his outpatient physician through [employer] about increasing the dose of his testosterone injections prior to admission to try to manage this symptom cluster. He requests that I reach out to this provider to discuss adjusting dose. Agreeable to titration of Zyprexa. Review of Systems Except as stated in HPI: all other systems reviewed are Neg Mental Status Examination Appearance: Appropriate Consciousness: Alert Orientation: x4 Motor Activity: Other (no hand tremor, no dystonia, no dyskinesia noted.) Speech: Unremarkable Language: Adequate Fund of Knowledge: Adequate Attention and Concentration: Adequate Memory: Unremarkable Mood: Other (remains depressed) Affect: Blunt (perhaps a little more reactive today) Thought Process & Associations: Logical, Goal directed, Linear Thought Content: Appropriate Hallucination Type: None Delusion Type: None Suicidal Ideation: Yes Suicidal Plan: No Suicidal Intention: Yes (no reported urge to hurt himself on the inpatient psychiatric unit) Homicidal Ideation: No Homicidal Plan: No Homicidal Intention: No Insight: Adequate Judgment: Adequate Results Labs labs reviewed Vitals/IOs Vital Signs Date Time Temp Pulse Resp B/P (MAP) Pulse Ox O2 Delivery O2 Flow Rate FiO2 01/09/17 05:32 97.6 78 17 112/58 (15) 33 Assessment & Plan Problem List: (1) Major depression ICD Codes: F32.9 - Major depressive disorder, single episode, unspecified Status: Acute Assessment & Plan Titrate Zyprexa to 7.5 mg at bedtime. Plan for continued cross-taper from Abilify to Zyprexa. Continue Paxil and Wellbutrin as ordered. Continue to monitor on the inpatient unit. Continue other medications and care is ordered. I will try to reach out to patient's outpatient provider to discuss the requested adjustment to his testosterone. Justification for Cont. Inpt. Concern for impairment in safety on an outpatient basis. Medication changes. High risk for decompensation in less restrictive environment. Discharge Planning Case discussed with counselor. Request HC Surrog/Guard Advoc?: No Problem Qualifiers (1) Major depression: Qualified Codes: F33.2 - Major depressive disorder, recurrent severe without psychotic features Jagdeep Montoya MD Jan 09, 2017 11:09
--- NOTE | 2017-01-09 12:02 | PD.TTN ---
Patient Problems 1. Discharge planning 2. Medication compliance 3. Knowledge deficit 4. Lack of coping skills Progress Toward Goals Provider Present: Dr. Ramsey Montoya Provider Input: Patient has increased feeling of suicidal ideations and is having medication cross tapered. Nurse(s) Input: Patient has no behavioral issues on the unit. Has not shown any self harming behaviors. Psychiatric Counselors Present: GERMAN Conte Psych Therapist Input: Patient is cooperative and calm. Patient states that his family is attempting to transition his insurance to [place] so that he can go to residential treatment in that state. Patient states that it will not kick in till . Patient states that he feels safe if he were to return home and recieve more intensive outpatient by his current therapist. Patient currently denies SI at the time of assessment. Group Spec/RT/OT/SEPULVEDA Present: Tanner Munguia OT Group Spec/RT/OT/SEPULVEDA Input: Patient attends groups and is able to provide insight to his mental health during groups. Chloe Lozada [facility] Jan 09, 2017 12:02
[2017-01-09] MEDS: ERGOCALCIFEROL (VIT D2) 50,000 UNIT CAP PO SCH (14:17)
[2017-01-09 16:06] VITALS: BP 118/75; PULSE 82; RESP 18; TEMP 98.3; O2SAT 98
[2017-01-09] MEDS ORDERED: OLANZapine 5 MG TAB PO SCH (21:00)
[2017-01-10 05:54] VITALS: BP 105/54; PULSE 81; RESP 17; TEMP 97.8
[2017-01-10] MEDS: DOXYCYCLINE HYCLATE 100 MG TAB PO SCH (08:54)
[2017-01-10] MEDS: ARIPiprazole 10 MG TAB PO SCH (08:54)
[2017-01-10] MEDS: PARoxetine HCL 20 MG TAB PO SCH (08:55)
[2017-01-10] MEDS: buPROPion HCL 150 MG SUSTAINED RELEASE TAB PO SCH ×2 (09:01→14:17)
--- NOTE | 2017-01-10 11:45 | HHI.PYPN ---
Subjective Chief Complaint: suicidal ideation Remarks Patient seen and examined. Chart reviewed. Case discussed with nursing staff. No behavioral issues overnight. On my examination today, the patient reports that mood remains depressed. He was also a little bit irritable last night. Suicidal ideation and intention persist unchanged. No reported urge to hurt himself on the inpatient psychiatric unit. He continues to feel "empty, lonely , hopeless." He does note that the switch from Abilify to Zyprexa has helped to decrease his nighttime depressive rumination, and he notes that he is sleeping better. He also may have a little bit more energy with the Wellbutrin. Denies side effects from medications. No new physical complaints. With patient's permission, I was able to reach out to patient's outpatient PA who manages his testosterone injections, EMMETT Mcdonald at [facility]. After discussion of patient's current reported symptoms, EMMETT Mcdonald recommends checking a trough testosterone level. If level 500-700, no change in testosterone dose. If level <500, recommends titrating dose to 100mg. She notes that if patient develops more than just spotting (i.e. full menses or heavy bleeding), she recommends obtaining Financial Recording Clerk consultation (female if possible) to assess for medical complications of testosterone therapy, such as atrophic vaginitis. Review of Systems Except as stated in HPI: all other systems reviewed are Neg Mental Status Examination Appearance: Appropriate Consciousness: Alert Orientation: x4 Motor Activity: Other (no motor abnormalities noted) Speech: Unremarkable Language: Adequate Fund of Knowledge: Adequate Attention and Concentration: Adequate Memory: Unremarkable Mood: Other (depressed) Affect: Blunt Thought Process & Associations: Logical, Goal directed, Linear Thought Content: Appropriate Hallucination Type: None Delusion Type: None Suicidal Ideation: Yes Suicidal Plan: No Suicidal Intention: Yes (again, no reported urge to hurt himself on the inpatient psychiatric unit) Homicidal Ideation: No Homicidal Plan: No Homicidal Intention: No Insight: Adequate Judgment: Adequate Results Labs labs reviewed Vitals/IOs Vital Signs Date Time Temp Pulse Resp B/P (MAP) Pulse Ox O2 Delivery O2 Flow Rate FiO2 01/10/17 05:54 97.8 81 17 105/54 (71) 01/09/17 16:06 98 Assessment & Plan Problem List: (1) Major depression ICD Codes: F32.9 - Major depressive disorder, single episode, unspecified Status: Acute Assessment & Plan Titrate Zyprexa to 10 mg at bedtime and taper Abilify to 5 mg daily. Continue Paxil and Wellbutrin as ordered, although we did discuss possibly titrating the latter agent for additional antidepressant effect. Check a testosterone level and adjust dose of testosterone injection based on the level. Continue to monitor on the inpatient unit. Encourage groups and unit activities. Continue other medications and care as ordered. Justification for Cont. Inpt. Med changes. Concern for impairment in safety. High risk for decompensation in less restrictive environment. Discharge Planning Pending psychiatric stabilization. Patient reports that he has spoken with the c4 planner and, given the difficulties in identifying a residential facility, is working to explore whether he can pursue intensive individual outpatient therapy as a potential alternative. Request HC Surrog/Guard Advoc?: No Problem Qualifiers (1) Major depression: Qualified Codes: F33.2 - Major depressive disorder, recurrent severe without psychotic features Jagdeep Montoya MD Jan 10, 2017 11:45
[2017-01-10 17:00] VITALS: BP 120/67; PULSE 83; RESP 16; TEMP 98.5; O2SAT 98
[2017-01-10] MEDS: hydrOXYzine HCL 50 MG TAB PO PRN (21:40)
[2017-01-10] MEDS: OLANZapine 5 MG TAB PO SCH (21:40)
[2017-01-11 05:03] VITALS: BP 100/60; PULSE 74; RESP 16; TEMP 97.4; O2SAT 97
[2017-01-11] MEDS: DOXYCYCLINE HYCLATE 100 MG TAB PO SCH (08:24)
[2017-01-11] MEDS: PARoxetine HCL 20 MG TAB PO SCH (08:24)
[2017-01-11] MEDS: buPROPion HCL 150 MG SUSTAINED RELEASE TAB PO SCH ×2 (08:28→13:41)
[2017-01-11] MEDS ORDERED: ARIPiprazole 10 MG TAB PO SCH (09:00)
[2017-01-11] MEDS: TESTOSTERONE CYPIONATE IN OIL 200 MG/ML VIAL IM SCH (10:51)
--- NOTE | 2017-01-11 11:23 | HHI.PYPN ---
Subjective Chief Complaint: suicidal ideation Remarks Patient seen and examined with nurse. Chart reviewed. Case discussed with nursing staff. On my examination today, the patient reports that his irritability is abating. He is having less depressive rumination at night. Suicidal intention is decreasing. Some ongoing suicidal ideation. Mood is slowly improving. He seems more interactive and less withdrawn and anhedonic on exam. No psychotic symptoms. Denies side effects from medications. Agreeable to continuing cross taper of Abilify to Zyprexa. Feels like medications are helping. No new physical complaints. I discussed the recommendations from his outpatient PA with the patient. He reports that he was just having vaginal spotting and not heavy bleeding or menses. Patient reports that he has been discussing discharge planning with his mother. He declines a family meeting at this time. Review of Systems Except as stated in HPI: all other systems reviewed are Neg Mental Status Examination Appearance: Appropriate Consciousness: Alert Orientation: x4 Motor Activity: Other (no motor abnormalities noted) Speech: Unremarkable Language: Adequate Fund of Knowledge: Adequate Attention and Concentration: Adequate Memory: Unremarkable Mood: Other (slowly improving but remains depressed) Affect: Blunt (more reactive) Thought Process & Associations: Logical, Goal directed, Linear Thought Content: Appropriate Hallucination Type: None Delusion Type: None Suicidal Ideation: Yes Suicidal Plan: No Suicidal Intention: Yes (decreasing. No reported urge to hurt himself on the inpatient psychiatric unit.) Homicidal Ideation: No Homicidal Plan: No Homicidal Intention: No Insight: Adequate Judgment: Adequate Results Labs Labs reviewed. Testosterone levels pending. Vitals/IOs Vital Signs Date Time Temp Pulse Resp B/P (MAP) Pulse Ox O2 Delivery O2 Flow Rate FiO2 01/11/17 05:03 97.4 74 16 100/60 (73) 97 Assessment & Plan Problem List: (1) Major depression ICD Codes: F32.9 - Major depressive disorder, single episode, unspecified Status: Acute Assessment & Plan Continue cross taper of Abilify to Zyprexa. Discontinue Abilify, patient has already received his dose for the day. Continue Zyprexa 10 mg at bedtime this evening with plan to titrate tomorrow evening. Continue Paxil and Wellbutrin as ordered. Follow-up testosterone levels, although this is a send out laboratory and may take several days to result. We will plan to administer normal dose of testosterone today with booster dose once levels result if indicated. Continue to monitor on the inpatient unit. Continue other medications and care as ordered. Justification for Cont. Inpt. Med changes. Monitoring for impairments in safety. Risk for decompensation in less restrictive environment. Discharge Planning Patient's clinical course is slowly improving. The patient is beginning to think actively about discharge planning. He would like to consider discharge shortly after the weekend, perhaps on Sunday if appropriate. I do not think this is an inappropriate timeframe for discharge. I have left a voicemail for the counselor to make sure that she finalizes discharge planning. Request HC Surrog/Guard Advoc?: No Problem Qualifiers (1) Major depression: Qualified Codes: F33.2 - Major depressive disorder, recurrent severe without psychotic features Jagdeep Montoya MD Jan 11, 2017 11:23
[2017-01-11 17:38] VITALS: BP 132/73; PULSE 80; RESP 17; TEMP 98.6; O2SAT 98
[2017-01-11] MEDS: OLANZapine 5 MG TAB PO SCH (21:29)
[2017-01-12 05:29] VITALS: BP 101/59; PULSE 75; RESP 17; TEMP 97.5; O2SAT 95
[2017-01-12] MEDS: PARoxetine HCL 20 MG TAB PO SCH (08:51)
[2017-01-12] MEDS: buPROPion HCL 150 MG SUSTAINED RELEASE TAB PO SCH ×2 (08:57→14:00)
[2017-01-12] MEDS ORDERED: TEST1INJ9 IM (12:42)
[2017-01-12] MEDS ORDERED: PARO20TA2 PO (12:42)
[2017-01-12] MEDS ORDERED: ERGO1CAP30 PO (12:42)
[2017-01-12] MEDS ORDERED: BUPR150CR PO (12:42)
[2017-01-12] MEDS ORDERED: OLAN5TAB PO (12:42)
--- NOTE | 2017-01-12 12:42 | HHI.DS ---
Psychiatry Discharge Summary Inpatient Psychiatric care?: Yes Advance Directive: No Reason Not Provided: Due to Patient Condition Mental Health AdvanceDirective: No Health Care Proxy: No Admission Admission Date Jan 01, 2017 at 14:41 Admission Diagnosis: (1) Severe major depression without psychotic features ICD Code: F32.2 - Major depressive disorder, single episode, severe without psychotic features Brief History 21-year-old male who presents voluntarily with approximate two-month history of increasing symptoms of depression. Patient is treated by Oriana Vidales in the [facility], with multiple psychotropic medicines, but his depression has gotten worse. He is experiencing nightly thoughts of suicide, including overdose on his Vistaril medication and putting a plastic bag over his head. He has attempted suicide in the past by cutting his wrists and overdosing. He does not recognize any stressor in the last 1-2 months that has caused this exacerbation of depression. He does not use alcohol or drugs. Patient's current symptoms include depressed mood, anhedonia, feelings of hopelessness and helplessness, suicidal ideation with plan, sleep disturbance, social withdrawal, diminished energy, diminished concentration, poor self- esteem and anxiety. He is living with his parents and is unemployed. Tobacco Use In Past 30 Days: 5 or More Cigarettes/Day Alcohol Use: Never Hospital Course Patient was admitted to a locked, inpatient psychiatric unit. Appropriate precautions were in place throughout patient's hospital stay. Patient was seen and examined daily on the unit by psychiatry and also visited by counselor. Psychotropic medications were adjusted. Patient tolerated medication changes well without side effects. Patient had improvement in presenting psychiatric symptomatology. There was no evidence of any suicidality or homicidality on the inpatient unit. The patient remained in good behavioral control and was medication compliant. With the benefit of psychopharmacologic treatment, the patient became more visible and sociable on the unit, and he participated well in unit activities. On the day of discharge: Patient seen and examined with nurse. Chart reviewed. Case discussed with nursing staff. On my examination today, the patient is requesting discharge from the inpatient psychiatric unit today. He reports that his mood continues to slowly improve and his depressive symptoms are abating. He has chronic suicidal ideation but denies any suicidal plan or intent and contracts for safety. He is hopeful and is future oriented. No hypomanic or manic symptoms. No psychotic symptoms. He denies side effects from medications. No physical complaints. He reports that his plan is to stay with his mother over the weekend and then go for an evaluation for partial hospital program in [place] on Sunday. With the patient's permission, I have obtained collateral information from his mother, Samantha Corbett over the phone at [phone]. Ms. Corbett has no safety concerns about the patient returning home today and is agreeable to accepting the patient home today. She notes that the home has already been secured of all potential means of harm to self/others. We discuss means to get the patient to urgent psychiatric assessment should the need arise including Amin act and ex parte. Weighing the acute, chronic, and protective factors and based on the available evidence, I margin trimmer to a reasonable degree of medical certainty that the patient does not presently meet criteria for involuntary psychiatric hospitalization. I have offered to retain the patient on the unit until Sunday as planned, but the patient wishes to leave the hospital today. Given that the patient is requesting discharge from the inpatient psychiatric unit today and given that he does not meet criteria for involuntary psychiatric hospitalization, I will arrange for his discharge into his mother's care with psychiatric follow-up as arranged by counselor. Patient is also to follow-up with primary care. I have counseled the patient regarding warning signs for need to return to the psychiatric emergency room is part of the general safety plan. Patient reports that he needs scripts only for the new medications, namely the Zyprexa and Wellbutrin. Results Blood Pressure 101 / 59 Vital Signs Date Time Temp Pulse Resp B/P (MAP) Pulse Ox O2 Delivery O2 Flow Rate FiO2 01/12/17 05:29 97.5 75 17 101/59 (73) 95 Laboratory Tests Test 01/10/17 16:48 Laboratory Results Test 01/02/17 10:52 Cholesterol Level 165 MG/DL (120-200) HDL Cholesterol 26.9 MG/DL (40.0-60.0) Hemoglobin A1c 5.0 % (4.3-6.0) LDL Cholesterol 95 MG/DL (0-99) Triglycerides Level 215 MG/DL (42-150) Summary of Procedures None done Imaging None done Pending results at discharge: Yes (testosterone level) Medications # of Antipsychotic meds at D/C: 1 Approp Antipsych med options 1 - Minimum of three failed multiple trials of monotherapy. 2 - Documented plan to taper to monotherapy due to previous use of multiple meds OR cross-taper in progress at D/C. 3 - Documentation of augmentation of Clozapine. 4 - Justification other than those listed in allowable values 1-3, document here : Discharge Discharge Date: Jan 12, 2017 Discharge Diagnosis: (1) Recurrent major depressive disorder in partial remission Diagnosis: Principal ICD Code: F33.41 - Major depressive disorder, recurrent, in partial remission Pt Condition on Discharge: Stable Discharge Disposition: Discharge Home Discharge Instructions Diet Instructions: As Tolerated, No Restrictions Activities you can perform: Weight Bearing as Caterina Scheduled Appointment: as per counselor's notes New Orders: VITAMIN D,25-HYDROXY - 6 Weeks New Medications: Bupropion HCl ER 12 HR (Wellbutrin SR 12 HR) 150 Mg Tab 150 MG PO BID@0900,1400 for Mental Health for 15 Days, TAB 1 Refill Ergocalciferol (Ergocalciferol) 50,000 Unit Cap 36020 UNITS PO Q7D for Vitamin D replacement, #6 CAP 0 Refills Olanzapine (Olanzapine) 5 Mg Tab 10 MG PO HS for Mental Health for 15 Days, TAB 1 Refill Paroxetine (Paroxetine) 20 Mg Tab 30 MG PO DAILY for Mental Health for 1 Day, #2 TAB 0 Refills Order is to update med rec only. Patient has adequate supply at home. Testosterone Cypionate Inj (Depo-Testosterone Inj) 200 Mg/Ml Inj 70 MG IM Q7D for Hormone replacement for 1 Day, INJECTION 0 Refills Order is to update med rec only. Patient has adequate supply. Continued Medications: Doxycycline Hyclate (Doxycycline Hyclate) 100 Mg Cap 100 MG PO DAILY for Infection, TAB 0 Refills Discontinued Medications: Aripiprazole (Abilify) 20 Mg Tab 20 MG PO DAILY, #30 TAB [address] (Cymbalta DR) 20 Mg Capdr 20 MG PO DAILY, #30 CAP 0 Refills Paroxetine (Paxil) 30 Mg Tab 60 MG PO DAILY, #30 TAB 0 Refills Propranolol (Propranolol) 10 Mg Tab 10 MG PO BID for Anxiety, #60 TAB 0 Refills Discharge Time > 30 minutes Mental Status Examination Appearance: Appropriate, Well dressed/well groomed Consciousness: Alert Orientation: x4 Motor Activity: Other (no abnormal motor movements noted. No hand tremor, no dystonia, no dyskinesia.) Speech: Unremarkable Language: Adequate Fund of Knowledge: Adequate Attention and Concentration: Adequate Memory: Unremarkable Mood: Other (improving) Affect: Other (fairly full and reactive. Smiles appropriately at intervals.) Thought Process & Associations: Logical, Goal directed, Linear Thought Content: Appropriate Hallucination Type: None Delusion Type: None Suicidal Ideation: Yes (chronic, baseline) Suicidal Plan: No Suicidal Intention: No Homicidal Ideation: No Homicidal Plan: No Homicidal Intention: No Insight: Adequate Judgment: Adequate Discharge/Advance Care Plan Health Problems: (1) Major depression Goals to promote your health * To prevent worsening of your condition and complications * To maintain your health at the optimal level Directions to meet your goals Take your medications as prescribed Follow your dietary instruction Follow activity as directed Keep your appointments as scheduled Take your immunizations and boosters as scheduled If your symptoms worsen call your PCP, if no PCP go to Urgent Care Center or Emergency Room For 09/10 questions related to your inpatient stay or results of tests pending at discharge, please contact Dr. Jagdeep Montoya at Smoking is Dangerous to Your Health. Avoid second hand smoking Jagdeep Montoya MD Jan 12, 2017 12:42
== END 2017-01-12 15:35 | disposition home or self-care (01) | DRG 885 ==
LOC: NEPD 02:34 → NEDA 14:41 → H260 17:50
PROVIDERS: ADMIT Psychiatry & Neurology Psychiatry; ATTEND Psychiatry & Neurology Psychiatry
DX: F32.2 Major depressive disorder, single episode, severe without psychotic features (principal); R45.851 Suicidal ideations; F17.210 Nicotine dependence, cigarettes, uncomplicated; F64.0 Transsexualism; F40.10 Social phobia, unspecified; F42.9 Obsessive-compulsive disorder, unspecified; F60.3 Borderline personality disorder; Z91.5 Personal history of self-harm; Z23 Encounter for immunization
CPT/HCPCS: 80053; 80061; 80307; 82306; 82607; 83036; 84403; 84410; 84443; 85025; 90686; 93005; J1071; Q2038